=== PATIENT | male | born 1995 | race Hispanic/Latino ===

== ENCOUNTER 2018-09-03 12:17 | Emergency (ER) | payer OTHER ==
[~2018-09-03] VITALS: Ht 172.7 cm; Wt 74.5 kg
[2018-09-03 15:08] VITALS: BP 135/73
--- NOTE | 2018-09-04 06:45 | REP ---
FACIAL BONES COMPLETE: 09/03/2018. Clinical history: Right maxillary trauma, numbness right maxillary region. Findings: No prior study. Six views provided. Septum is midline without deviation. I see no definite linear or depressed nasal bone fracture. There are no air-fluid levels or areas of mucosal thickening suggested by plain film in the maxillary antra. The ethmoid, frontal and sphenoid sinuses are grossly intact. Orbital struts intact. No orbital floor depressed fracture. Orbital roof intact right zygomatic arch is unremarkable. Impression: 1. There is no evidence of fracture about the right orbit or maxilla. No air-fluid levels, mucosal thickening in the maxilla or ethmoids. Zygomatic arch on the right intact. The other visualized bones including nasal bones, nasal septum, that portion of the calvarium, visible upper cervical spine and mandible were all unremarkable. Electronically Signed by Chance Keen MD 09/04/2018 09:47 A
== END 2018-09-03 15:13 | disposition home or self-care (01) ==
LOC: M ED 12:17
DX: S04.51XA Injury of facial nerve, right side, initial encounter (principal); W00.0XXA Fall on same level due to ice and snow, initial encounter; G51.9 Disorder of facial nerve, unspecified; Y92.89 Other specified places as the place of occurrence of the external cause

== ENCOUNTER 2020-06-16 00:38 | Emergency (ER) | payer OTHER ==
[~2020-06-16] VITALS: Ht 172.7 cm; Wt 88.2 kg
[2020-06-16 01:09] LABS: HEMATOCRIT 47.6 % (42.0-52.0); HEMOGLOBIN 15.8 g/dl (13.5-17.5); MEAN CORPUSCULAR HGB CONC 33.2 g/dl (32.0-36.5); MEAN CORPUSCULAR VOLUME 96.6 fl (80.0-96.0); PLATELET COUNT, AUTOMATED 281 10^3/uL (150-450); RED BLOOD COUNT 4.93 10^6/uL (4.30-6.10); WHITE BLOOD COUNT 12.4 10^3/uL (4.0-10.0)
[2020-06-16] MEDS ORDERED: NS 1,000 ML IV ONE (01:15)
[2020-06-16 01:37] LABS: BLOOD UREA NITROGEN 14 MG/DL (7-18); CALCIUM LEVEL 8.3 MG/DL (8.5-10.1); CARBON DIOXIDE LEVEL 28 MEQ/L (21-32); CHLORIDE LEVEL 107 MEQ/L (98-107); CREATININE FOR GFR 1.03 MG/DL (0.70-1.30); ETHYL ALCOHOL (ETHANOL) 0.262 % (0.000-0.010); GLOMERULAR FILTRATION RATE > 60.0 (>60); GLUCOSE, FASTING 115 MG/DL (70-100); POTASSIUM SERUM 4.5 MEQ/L (3.5-5.1); SODIUM LEVEL 142 MEQ/L (136-145)
--- NOTE | 2020-06-16 01:41 | REPVR ---
PROCEDURE INFORMATION: Exam: CT Head Without Contrast Exam date and time: 06/16/2020 1:10 AM Age: 25 years old Clinical indication: Injury or trauma; Fall; Blunt trauma (contusions or hematomas) TECHNIQUE: Imaging protocol: Computed tomography of the head without contrast. Radiation optimization: All CT scans at this facility use at least one of these dose optimization techniques: automated exposure control; mA and/or kV adjustment per patient size (includes targeted exams where dose is matched to clinical indication); or iterative reconstruction. COMPARISON: No relevant prior studies available. FINDINGS: Brain: Minimal acute subdural hemorrhage along the floor of the left anterior cranial fossa superomedial to the left orbit measuring up to 2 mm in thickness (series 203 images 7 and 8). No midline shift or intracranial mass effect. No cerebral edema. Cerebral ventricles: No hydrocephalus. Bones/joints: Nondisplaced fracture involving the left frontal bone extending to the left frontal sinus and superior/anterior left orbit. Paranasal sinuses: Mild paranasal sinus disease. Mastoid air cells: Visualized mastoid air cells are well aerated. Soft tissues: Left frontal scalp soft tissue injury. IMPRESSION: 1. Findings concerning for minimal acute subdural hemorrhage along the floor of the left anterior cranial fossa above the left orbit measuring up to 2 mm in thickness (series 203 images 7 and 8). 2. Nondisplaced fracture involving the left frontal bone extending to the left frontal sinus and superior/anterior left orbit. Electronically signed by: Clarence Vargas On 06/16/2020 01:41:01 AM
--- NOTE | 2020-06-16 01:44 | REPVR ---
PROCEDURE INFORMATION: Exam: CT Cervical Spine Without Contrast Exam date and time: 06/16/2020 1:10 AM Age: 25 years old Clinical indication: Injury or trauma; Fall; Blunt trauma TECHNIQUE: Imaging protocol: Computed tomography images of the cervical spine without contrast. Radiation optimization: All CT scans at this facility use at least one of these dose optimization techniques: automated exposure control; mA and/or kV adjustment per patient size (includes targeted exams where dose is matched to clinical indication); or iterative reconstruction. COMPARISON: No relevant prior studies available. FINDINGS: Bones/joints: [id number] dextroconvex curvature. Vertebral body height and AP alignment is preserved. No acute cervical spine fracture. Discs/Spinal canal/Neural foramina: No definite significant central canal stenosis within limitations of technique. Soft tissues: Unremarkable. Lungs: Lung apices are normal. Pleural space: No visible pneumothorax. Vasculature: Scattered intravascular venous gas likely secondary to IV access. IMPRESSION: No acute cervical spine fracture. Electronically signed by: Clarence Vargas On 06/16/2020 01:43:59 AM
[2020-06-16 01:51] VITALS: BP 144/67
== END 2020-06-16 01:50 | disposition short-term general hospital (02) ==
LOC: EDBD 00:38 → M ED 00:38
DX: S06.5X0A Traumatic subdural hemorrhage without loss of consciousness, initial encounter (principal); S02.91XA Unspecified fracture of skull, initial encounter for closed fracture; Y04.8XXA Assault by other bodily force, initial encounter; W10.9XXA Fall (on) (from) unspecified stairs and steps, initial encounter; Y92.9 Unspecified place or not applicable; Y93.9 Activity, unspecified; F10.129 Alcohol abuse with intoxication, unspecified
CPT/HCPCS: 36415; 70450; 72125; 80048; 85027; 99284; G0480

== ENCOUNTER 2020-12-24 17:23 | Emergency (ER) | payer OTHER ==
[~2020-12-24] VITALS: Ht 172.7 cm; Wt 78.2 kg
[2020-12-24 17:24] VITALS: BP 126/75
== END 2020-12-24 20:39 | disposition left against medical advice (07) ==
LOC: M ED 17:23
DX: Z53.21 Procedure and treatment not carried out due to patient leaving prior to being seen by health care provider (principal)